=== PATIENT | female | born 1990 | race Caucasian/White ===

== ENCOUNTER 2021-01-09 17:22 | Emergency (ER) | payer BC, SELFPAY ==
--- NOTE | ~2021-01-09 | XR_ITS ---
EXAMINATION: XR SOFT TISSUE NECK CLINICAL INDICATION: Difficulty swallowing COMPARISON: None TECHNIQUE: 2 views of the soft tissue neck were obtained. FINDINGS: Soft tissue films of the neck demonstrate a normal larynx, pharynx and upper trachea. No soft tissue swelling or opaque foreign body is demonstrated. XR/XR soft tissue neck IMPRESSION: Unremarkable examination.
[2021-01-09 17:47] VITALS: BP 143/97; PULSE 83; RESP 16; TEMP 37.2; O2SAT 98; BMI 26.4
[2021-01-09 19:34] VITALS: BP 144/97; PULSE 78; RESP 20; O2SAT 98
--- NOTE | 2021-01-09 20:05 | PC.NURSE ---
pt rounded on and no s/s of difficutly breathing, talking in full sentences clear. hr 76 sat 100% sitting upright with call joel by her side. pt is on the monitor nsr no ectopy noted.
--- NOTE | 2021-01-09 20:08 | PC.NURSE ---
provider at bedside.
[2021-01-09] MEDS: Loratadine 10 MG TABLET PO (20:19)
[2021-01-09 20:31] VITALS: BP 151/80; PULSE 88; RESP 18; TEMP 37.2; O2SAT 99
--- NOTE | 2021-01-09 20:33 | ED.ALLEREA ---
HPI - Allergic Reaction General Chief complaint: Allergic Reaction Stated complaint: Allergic reaction Time Seen by Provider: 01/09/21 19:23 History of Present Illness HPI narrative: Chief complaint is new episode is the dentist after receiving local anesthetic in which she was salivating had trouble swallowing, had itchiness and tightness in her throat which has resolved and was given 50 of Benadryl at the dentist for a possible allergic reaction. It now she has no shortness of breath no difficulty swallowing no salivation and the local anesthetic has mostly worn off so she feels normal Related Data Previous Rx's Medication Instructions Recorded cetirizine 10 mg PO DAILY PRN #14 cap 01/09/21 Allergies Allergy/AdvReac Type Severity Reaction Status Date / Time No Known Allergies Allergy Verified 01/09/21 18:00 Review of Systems Review of Systems: Positive for throat tightness and itchiness resolved as well as its elevation and difficulty swallowing also resolved There is no dizziness no weakness no fever no chills no shortness of breath no chest pain no palpitations no nausea no vomiting no rash no swelling of the tongue lips or throat Yes all other systems are reviewed and are negative PMFSH Past Medical History Source: nursing notes reviewed Surgical History (Updated 01/09/21 @ 17:58 by Willie Montano) History of ear surgery Social History Social History Smoking Status: Never smoker Substance Use Type: Marijuana Substance Use Frequency: Occasionally Any prior treatment program specific to substance use: No Advance Directives: No Advance Directives Information Provided: Yes Physical Exam Vital Signs: Vital Signs: Last Vital Signs Temp 98.9 F 01/09/21 20:31 Pulse 70 01/09/21 20:41 Resp 18 01/09/21 20:41 BP 138/93 H 01/09/21 20:41 Pulse Ox 99 01/09/21 20:41 Body Mass Index 26.4 General appearance comfortable relax no acute distress no salivate in no evidence of any work of breathing, speaking full sentences Head is normocephalic atraumatic The pharynx is clear with no swelling of tongue uvula or pharynx or lips, there is no salivation, mucous membranes are moist The neck is supple there is no stridor The chest is clear to auscultation bilaterally with full symmetrical breath sounds Heart rate and rhythm regular no murmur Extremities for range of motion x4 Skin there are no rashes Neuro no focal deficit Course Course Course Narrative: At this point the patient is asymptomatic and is swallowing and breathing easily with no salivation It is possible this was an allergic reaction, or possible was simply of the reaction to the local anesthetic it is not clear if she is allergic to it as she has had local anesthetic before she believes It is recommended she find out which local anesthetic her dentist gave her today and check with her oral surgeon to see if she was given local anesthetic in the past it is also advised to follow with an international trade analyst Discharge Plan Discharge Clinical Impression: Allergic reaction Patient Disposition: Home, Self-Care Additional Instructions: You seem to have recovered from the reaction to local anesthetic It would be a very good idea to see international trade analyst to confirm which and if you are allergic to local anesthetics Return any time any worse condition or any concerns Be sure to tell any person who is administering local anesthetics about this reaction Prescriptions: New cetirizine 10 mg capsule 10 mg PO DAILY PRN (Reason: allergy symptoms) Qty: 14 RF: 0 Interventions: ED Discharge Assessment Last Done: 01/09/21 20:42 Discharge Date/Time: 01/09/21 20:43
[2021-01-09 20:41] VITALS: BP 138/93; PULSE 70; RESP 18; O2SAT 99
== END 2021-01-09 20:43 | disposition home or self-care (01) ==
PROVIDERS: Emergency Provider Emergency Medicine; PCP Internal Medicine
DX: K11.7 Disturbances of salivary secretion (principal); T41.3X5A Adverse effect of local anesthetics, initial encounter; Y92.531 Health care provider office as the place of occurrence of the external cause
CPT/HCPCS: 70360; 99283; 99284